=== PATIENT | male | born 1940 | race African-American/Black ===

== ENCOUNTER 2022-12-14 14:15 | Emergency (ER) | payer OTHER ==
[2022-12-14 14:29] VITALS: RESP 18
[2022-12-14 14:57] VITALS: PULSE 58; TEMP 98.4; BMI 22.3
[2022-12-14 16:44] LABS: BASO % 0.6 % (0-2.0); EOS % 4.4 % (0-4.5); HEMATOCRIT 37.6 % (35.4-49); HEMOGLOBIN 12.4 GM/dL (11.7-16.9); LYMPH % 41.7 % (8-40); MCH 27.2 pg (25.7-33.7); MCHC 32.9 g/dl (32.0-35.9); MEAN CELL VOLUME 82.8 fl (80-96); MEAN PLT VOLUME 8.3 fl (7.5-11.1); NEUT % 44.3 % (42.8-82.8); PLATELET COUNT 132 10^3/uL (134-434); RBC 4.54 M/mm3 (4.00-5.60); RDW 15.5 % (11.9-15.9); WHITE BLOOD COUNT 4.2 K/mm3 (4.0-10.0)
[2022-12-14 17:00] LABS: POTASSIUM 4.3 mmol/L (3.5-5.1)
[2022-12-14 17:03] LABS: ALBUMIN 3.4 g/dl (3.4-5.0); BLOOD UREA NITROGEN 15.2 mg/dL (7-18); CALCIUM 9.5 mg/dL (8.5-10.1)
[2022-12-14 17:06] LABS: CREATININE 1.1 mg/dL (0.55-1.3)
[2022-12-14 17:08] LABS: BILIRUBIN,TOTAL 0.7 mg/dL (0.2-1); TOT PROT 7.1 g/dl (6.4-8.2)
[2022-12-14 17:22] VITALS: BP 183/95
== END 2022-12-14 17:47 | disposition home or self-care (01) ==
LOC: JER 14:15
DX: I10 Essential (primary) hypertension (principal)
CPT/HCPCS: 36415; 80053; 85025; 93005; 93010; 99284-25